=== PATIENT | male | born 2005 | race Caucasian/White ===

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

== ENCOUNTER → 2024-03-30 | Outpatient (REF) | payer MEDICAID | LOC: M LAB REF 16:44 | PROVIDERS: ATTEND Physician Assistant Medical | DX: Z11.4 Encounter for screening for human immunodeficiency virus [HIV] (principal) ==